=== PATIENT | male | born 1975 | race Caucasian/White ===

== ENCOUNTER 2016-09-13 15:15 | Emergency (ER) | payer OTHER ==
[2016-09-13 15:30] VITALS: BP 128/83
[2016-09-13 15:59] VITALS: PULSE 104; O2SAT 95
[2016-09-13] MEDS ORDERED: VERSED 5 MG/5 ML IV ONE (16:00)
[2016-09-13] MEDS ORDERED: DEMEROL 50 MG IV ONE (16:00)
[2016-09-13] MEDS ORDERED: Sodium Chloride 0.9% 1000 ML 1,000 ML ONE ×2 (16:06→17:32)
--- NOTE | 2016-09-13 16:08 | ERPHSYRPT ---
- History of Present Illness Time Seen by Provider: 09/13/16 15:30 Historian: patient Exam Limitations: clinical condition Patient Subjective Stated Complaint: pt states at 1300 this afternoon he was eating steak and thinks he has a piece lodged in throat. pt states he has had this happen in the past and had egd to remove foriegn body. Triage Nursing Assessment: pt pink, warm, dry. pt able to speak without difficulty. breathing wnl, no stridor noted. Physician History: PATIENT WITH HISTORY OF ESOPHAGEAL FOREIGN BODY LAST FEBRUARY 2016 REQUIRING UPPER ENDOSCOPY FOLLOWED BY ESOPHAGEAL DILATATION. PATIENT COMPLAINS OF MEAT LODGE IN HIS MID CHEST AFTER EATING. STATES HE IS UNABLE TO SWALLOW HIS SILIVA OR SMALL AMOUNTS OF LIQUIDS ASSOCIATED WITH EPIGASTRIC FULLNESS. Timing/Duration: today Activities at Onset: other (EATING) Abdominal Pain Onset Location: epigastric Pain Radiation: no radiation Severity of Pain-Max: mild Severity of Pain-Current: mild Modifying Factors: Improves With: other (UNABLE TO SWALLOW LIQUIDS) Associated Symptoms: nausea Previous symptoms: same symptoms as today Allergies/Adverse Reactions: No Known Drug Allergies Allergy (Unverified 09/13/16 15:30) Home Medications: Lansoprazole [Prevacid 24Hr] 15 mg PO HS 09/13/16 [History] Lisinopril 20 mg [Zestril 20 MG] 20 mg PO DAILY 09/13/16 [History] Hx Tetanus, Diphtheria Vaccination/Date Given: Yes (up to date) Hx Influenza Vaccination/Date Given: No Hx Pneumococcal Vaccination/Date Given: No Immunizations Up to Date: Yes - Review of Systems Constitutional: No Fever, No Chills Eyes: No Symptoms Ears, Nose, & Throat: No Symptoms Respiratory: No Symptoms, No Cough, No Dyspnea Cardiac: No Symptoms, No Chest Pain, No Edema, No Syncope Abdominal/Gastrointestinal: No Abdominal Pain, No Nausea, No Vomiting, No Diarrhea Genitourinary Symptoms: No Symptoms, No Dysuria Musculoskeletal: No Back Pain, No Neck Pain Skin: No Rash Neurological: No Dizziness, No Focal Weakness, No Sensory Changes Psychological: No Symptoms Endocrine: No Symptoms All Other Systems: Reviewed and Negative - Past Medical History Pertinent Past Medical History: Yes Neurological History: No Pertinent History ENT History: No Pertinent History Cardiac History: Hypertension Respiratory History: No Pertinent History Endocrine Medical History: No Pertinent History Musculoskeletal History: No Pertinent History GI Medical History: No Pertinent History History: Other Psycho-Social History: No Pertinent History Male Reproductive Disorders: No Pertinent History Other Medical History: acid reflux - Past Surgical History Past Surgical History: Yes Neuro Surgical History: No Pertinent History Cardiac: No Pertinent History Respiratory: No Pertinent History Gastrointestinal: No Pertinent History Genitourinary: No Pertinent History Musculoskeletal: No Pertinent History Male Surgical History: No Pertinent History Other Surgical History: tonsillectomy. egd. fatty tumor removed from shoulder - Social History Smoking Status: Never smoker Exposure to second hand smoke: No Drug Use: none Patient Lives Alone: No - Nursing Vital Signs Nursing Vital Signs: Initial Vital Signs Temperature 98.5 F Temperature Source Oral Pulse Rate 104 Respiratory Rate 20 Blood Pressure [Right Arm] 128/83 Blood Pressure 128/83 Pain Intensity 5 - Physical Exam General Appearance: no apparent distress, alert Eye Exam: PERRL/EOMI, eyes nml inspection Ears, Nose, Throat Exam: normal ENT inspection, pharynx normal, moist mucous membranes Neck Exam: normal inspection, non-tender, supple, full range of motion Respiratory Exam: normal breath sounds, lungs clear, No respiratory distress Cardiovascular Exam: regular rate/rhythm, normal heart sounds Gastrointestinal/Abdomen Exam: soft, normal bowel sounds (NONTENDER), No tenderness, No mass Back Exam: normal inspection, normal range of motion, No CVA tenderness, No vertebral tenderness Extremity Exam: normal inspection, normal range of motion, pelvis stable Neurologic Exam: alert, oriented x 3, cooperative, normal mood/affect, nml cerebellar function, sensation nml, No motor deficits Skin Exam: normal color, warm, dry SpO2: 95 Oxygen Delivery: Room Air Ordered Tests: Active Orders 24 hr Category Date Time Status IV Insertion STAT Care 09/13/16 15:47 Active - Progress Discussed with : Prince (DISCUSSED WITH DR ROCA AT 1530 FOR EVALUATION, AND TRANSFER TO ENDOSCOPY) - Departure Time of Disposition: 15:50 Departure Disposition: Observation Clinical Impression: ESOPHAGEAL FOREIGN BODY Condition: Stable Critical Care Time: No
--- NOTE | 2016-09-14 07:42 | CONS ---
CONSULT DATE: 09/13/2016 This patient is seen for Dr. Rachel who was pulmonary physician for our group today when he was called and I was here doing some other cases. He asked that I see the patient. HISTORY: The patient is a 40 year-old gentleman with history of prior dysphagia, food bolus impaction and dilatation by Dr. Shi in the past. He was eating meat a couple of hours ago when it got stuck. He was unable to swallow and keep it down. He is spitting up saliva at this time. He was seen by Dr. Godoy who asked for surgical consult. Dr. Rachel who is pulmonary physician for our group today asked that I see the patient as I was down here in between some cases. PAST MEDICAL HISTORY: Hypertension. He has been overweight. He has had some reflux. PAST SURGICAL HISTORY: Fatty tumor removed from his shoulder in the past. He also had EGD with food bolus removed by Dr. Shi and later he did dilatation in the past last February. MEDICATIONS: Lisinopril, generic omeprazole. ALLERGIES: NKDA. FAMILY HISTORY: Heart disease. Negative for any esophageal cancer. SOCIAL HISTORY: No smoking. He does use occasional use. REVIEW OF SYSTEMS: Ten systems reviewed per preadmission questionnaire pertinent for as noted above. He denies any blood thinner use or bleeding problems. No shortness of breath or palpitations. No abdominal pain. Other systems negative or noncontributory as noted above and per preadmission questionnaire. PHYSICAL EXAMINATION: GENERAL: No acute distress. HEENT: Sclera nonicteric. NECK: No JVD. CHEST: Equal excursion, nonlabored breathing. CVS: Regular rhythm and pulse. ABDOMEN: Nondistended, obese. EXTREMITIES: No edema. NEURO: Alert, moving extremities grossly symmetrically. IMPRESSION: Dysphagia, question of retained food bolus. I feel the patient will benefit from upper endoscopy possible removal or dislodgement of food bolus, possible biopsy. Risks and benefits explained in detail to the patient including but not limited to bleeding or infection, risk of aspiration and pneumonia, respiratory failure, cardiopulmonary event, possibility of whatever he has stuck in there could have already damaged his esophagus as well as risk of removing or dislodging the food bolus possibly, risk of perforation or leak possibly requiring major operation, possible referral to tertiary center, general risk of anesthesia, deep venous thrombosis, pulmonary embolism, pneumonia, risk of sedation, aches and pains but not limited to. He also understands remote possibility if unable to dislodge the material that he may need referral to tertiary center for rigid scope as it is not available here. He understands all the above risks but not limited to as well as overall risk of recurrence of his problem, possible need for dilatation down the road. The patient was seen for Dr. Rachel who is pulmonary physician for our group today.
--- NOTE | 2016-09-14 08:05 | OP ---
SURGERY DATE/TIME: 09/13/2016 1613 PREOPERATIVE DIAGNOSIS: Dysphagia with retained food bolus. History of reflux and hypertension. POSTOPERATIVE DIAGNOSIS: Dysphagia with retained food bolus. History of reflux and hypertension. PROCEDURES: 1) EGD with dislodgement of very large retained food bolus of meat distal esophagus. 2) Cold biopsy of antrum to evaluate for Helicobacter pylori for gastritis. 3) Cold biopsy distal esophagitis. SURGEON: Dr. Julian Dueñas. ANESTHESIA: IV Demerol and Versed. ESTIMATED BLOOD LOSS: Minimal. INDICATIONS: As noted above. Risks and benefits explained in detail and not limited including overall risk of aspiration. Consent was obtained. DESCRIPTION OF PROCEDURE AND FINDINGS: The patient was taken to the endoscopy room. He did not have any further questions. Continuous pulse oximetry with blood pressure monitoring. The posterior pharynx sprayed with Benzocaine spray. Bite block positioned. He was incrementally sedated with IV Demerol and Versed initially and given additional IV Versed. Video gastroscope easily passed down the pharynx and proximal esophagus. He had a very large chunk of impacted meat that was probably seen to be 5 to 6 cm long or longer. This appeared to be in more distal esophagus. With some gentle pushing with the scope very gently the food bolus was able to be mobilized into the stomach and dislodged from this impaction in the distal esophagus. Scope is pulled back. There did not appear to be any evidence of any gangrene or ischemia at this point. He did have some esophagitis. Cold biopsy is taken. Given the friability it was felt that it was not warranted to dilate the patient at this point. Cold biopsy taken to evaluate for esophagitis for further evaluation. Again the esophagus was too friable to warrant esophageal dilatation at this point. There did not appear to be any evidence of any full thickness issues other than the impacted food bolus at this time. The scope is passed back into the stomach. Pylorus is patent. First and second portion of the duodenum grossly unremarkable. Back in the stomach he had some mild gastritis. Cold biopsy taken to evaluate for Helicobacter pylori. Otherwise the stomach exam was limited as there was a fair amount of food particle and debris in the stomach limiting the exam. There did not appear to be any obvious large masses. Retroflex was not readily available given the amount of food in the stomach. The scope was straightened and pulled back to gastroesophageal junction noted to be about 41 cm or so. Again the biopsy sites of the distal esophagus had been biopsied and had good hemostasis. Again there had been no signs of any full thickness issues or injury. The remainder of the esophagus grossly unremarkable. The patient tolerated the procedure well. There were no immediate complications. Findings discussed with the family out in the waiting area. Once the gag reflux returns clear liquids and advance to soft diet tomorrow if tolerating. Again, this patient was seen for Dr. Chet Rachel who was corrosion control specialist for our group today.
== END 2016-09-13 18:30 | disposition home or self-care (01) ==
LOC: ED 15:15
DX: T18.128A Food in esophagus causing other injury, initial encounter (principal)
CPT/HCPCS: 36000; 36415; 87081; 99284

== ENCOUNTER 2024-06-01 14:05 | Emergency (ER) | payer BC ==
--- NOTE | 2024-06-01 14:10 | ERPHSYRPT ---
- History of Present Illness Time Seen by Provider: 06/01/24 14:09 Source: patient, family Exam Limitations: no limitations Physician History: This is a right handed 48-year-old white male patient of nurse practitioner Janelle who was making a wooden cabinet and using a special tool that both grinds and oscillates. Somehow the on switch was activated and the palmar skin of the distal tip of the left index finger caused an abrasion to the site. The finger was not crushed. Patient's tetanus status is not up-to-date. Patient has a history of hypertension and gastroesophageal reflux disease. Occurred: just prior to arrival Method of Injury: other (Tip of left index finger ground with grinder set up operator) Quality: aching Severity of Pain-Max: mild Severity of Pain-Current: mild Extremities Pain Location: 2nd finger: left Modifying Factors: Improves With: movement Associated Symptoms: none Allergies/Adverse Reactions: No Known Drug Allergies Allergy (Verified 06/01/24 14:11) Home Medications: Lansoprazole [Prevacid 24Hr] 15 mg PO HS 09/13/16 [History] Lisinopril 20 mg [Zestril 20 MG] 20 mg PO DAILY 09/13/16 [History] Hx Tetanus, Diphtheria Vaccination/Date Given: Yes (up to date) Hx Influenza Vaccination/Date Given: No Hx Pneumococcal Vaccination/Date Given: No Travel Risk - International Travel Have you traveled outside of the country in past 3 weeks: No - Emerging Infectious Disease Are you exhibiting symptoms associated with any current EIDs: No - Review of Systems Constitutional: No Symptoms Eyes: No Symptoms Ears, Nose, & Throat: No Symptoms Respiratory: No Symptoms Cardiac: No Symptoms Abdominal/Gastrointestinal: No Symptoms Genitourinary Symptoms: No Symptoms Musculoskeletal: No Symptoms Skin: Other (Multiple localized abrasions palmar aspect tip of left index fin michael) Neurological: No Symptoms Psychological: No Symptoms Endocrine: No Symptoms Hematologic/Lymphatic: No Symptoms Immunological/Allergic: No Symptoms All Other Systems: Reviewed and Negative - Past Medical History Pertinent Past Medical History: Yes Neurological History: No Pertinent History ENT History: No Pertinent History Cardiac History: Hypertension Respiratory History: No Pertinent History Endocrine Medical History: No Pertinent History Musculoskeletal History: No Pertinent History GI Medical History: No Pertinent History History: Other Psycho-Social History: No Pertinent History Male Reproductive Disorders: No Pertinent History Other Medical History: acid reflux - Past Surgical History Past Surgical History: Yes Neuro Surgical History: No Pertinent History Cardiac: No Pertinent History Respiratory: No Pertinent History Gastrointestinal: No Pertinent History Genitourinary: No Pertinent History Musculoskeletal: No Pertinent History Male Surgical History: No Pertinent History Other Surgical History: tonsillectomy. egd. fatty tumor removed from shoulder - Social History Smoking Status: Never smoker Exposure to second hand smoke: No Drug Use: none Patient Lives Alone: No - Nursing Vital Signs Nursing Vital Signs: Initial Vital Signs Pulse Rate 72 06/01/24 14:24 Respiratory Rate 18 06/01/24 14:24 Blood Pressure 170/104 06/01/24 14:24 O2 Sat by Pulse Oximetry 96 06/01/24 14:24 Pain Scale Pain Intensity 6 - Physical Exam General Appearance: no apparent distress, alert, obese Eyes, Ears, Nose, Throat Exam: normal ENT inspection, moist mucous membranes Neck Exam: normal inspection, non-tender, supple, full range of motion Cardiovascular/Respiratory Exam: chest non-tender, no respiratory distress Abdominal Exam: non-tender Back Exam: normal inspection, normal range of motion, No CVA tenderness, No vertebral tenderness Shoulder Exam: normal inspection, non-tender, no evidence of injury, normal ROM Elbow/Forearm Exam: normal inspection, non-tender, no evidence of injury, normal ROM Wrist Exam: normal inspection, non-tender, no evidence of injury, normal ROM Hand Exam: normal inspection (Palmar aspect, tip of left index finger), soft tissue tenderness (Palmar aspect tip of left index finger) Neuro/Tendon Exam: normal sensation, normal motor functions, normal tendon functions, responds to pain, no evidence tendon injury Mental Status Exam: alert, oriented x 3 Skin Exam: warm, dry, abrasion (See above hand section) SpO2 Interpretation: normal O2 Delivery: Room Air - Course Nursing assessment & vital signs reviewed: Yes Ordered Tests: Medication Summary Discontinued Medications Generic Name Dose Route Start Last Admin Trade Name Freq PRN Reason Stop Dose Admin Bacitracin Zinc 0.9 each 06/01/24 14:45 Bacitracin Packet 1 Each Pckt TP 06/01/24 14:46 STAT ONE Diphtheria/Tetanus/Acell Pertussis 0.5 ml 06/01/24 14:46 Tdap --Diph,Pertuss(Acell),Tet Vac/Pf 0.5 Ml Vial IM 06/01/24 14:47 .ONCE ONE Lidocaine HCl Confirm 06/01/24 14:15 Lidocaine Hcl 1% 20 Ml Mdv 20 Ml Ml Administered 06/01/24 14:16 Dose 5 ml .ROUTE .STK-MED ONE - Progress Progress: improved, pain not gone completely, re-examined Progress Note: 06/01/24 14:53 My medical decision making and the assignment of low complexity to this patie nt's medical issue today is based on review of the patient's past medical history, review of the patient's medication list, reviewed patient drug allergy list, history present illness and physical findings on examination. No laboratory radiographic studies are necessary in the workup of this patient. Counseled pt/family regarding: diagnosis, need for follow-up Medical Desision Making - Independent Historian Additional History obtained from: Spouse - Diagnostic Testing Diagnostic test were ordered, analyzed, and reviewed by me: No - Risk of complications Minimal Risk: Minimal risk of morbidity - Departure Departure Disposition: Home Clinical Impression: Abrasion of finger of left hand Condition: Stable Critical Care Time: No Referrals: ANNIKA GARCIA NP [Primary Care Provider] - Follow up/PCP as directed Additional Instructions: Keep the current dressing in place until 3 PM on 06/02/2024. At that time, you may remove the pressure dressing and then let the soapy water flow over the site 1-2 times a day. Blot dry or use a hair mixer and then reapply antibiotic ointment of choice covering afterwards with a bandage. Take your antibiotics as prescribed. If there are no contraindications, you may take Tylenol and ibuprofen for pain control. Prescriptions: Cephalexin Mh 500 mg [Keflex 500 mg] 500 mg PO TID #15 cap
[2024-06-01] MEDS ORDERED: XYLOCAINE 1% HCL 20 ML MDV ONE (14:15)
[2024-06-01 14:25] VITALS: BP 170/104; PULSE 72; RESP 18; O2SAT 96
[2024-06-01] MEDS ORDERED: BACIGUENT PACKET ONE (14:46)
[2024-06-01] MEDS ORDERED: Adacel Vial IM ONE (14:48)
[2024-06-01] MEDS: Adacel Vial IM ONE (14:49)
[2024-06-01] MEDS: BACIGUENT PACKET TP ONE (14:50)
== END 2024-06-01 15:01 | disposition home or self-care (01) ==
LOC: ED 14:05
DX: S60.411A Abrasion of left index finger, initial encounter (principal); W29.8XXA Contact with other powered hand tools and household machinery, initial encounter; I10 Essential (primary) hypertension; Z79.899 Other long term (current) drug therapy; Z23 Encounter for immunization
CPT/HCPCS: 90471; 90715; 99282; A9270-GY